=== PATIENT | female | born 1970 | race Caucasian/White ===

== ENCOUNTER 2021-11-17 09:58 | Day surgery (SDC) | payer BC ==
[~2021-11-17 09:58] MED LIST: Lactated Ringers 1,000 ML IV SCH; Midazolam 1 MG/ML 2 ML SDV ONE; Propofol 200 MG/20 ML SDV ONE; Sodium Chloride 0.9% 10 ML Syringe FLUSH PRN
[2021-11-17 14:47] VITALS: BP 129/90; PULSE 76
== END 2021-11-17 13:20 | disposition home or self-care (01) ==
LOC: LL.SDS 09:58
PROVIDERS: ATTEND Surgery
DX: Z12.11 Encounter for screening for malignant neoplasm of colon (principal); K64.9 Unspecified hemorrhoids; M17.11 Unilateral primary osteoarthritis, right knee; Z79.899 Other long term (current) drug therapy; Z80.0 Family history of malignant neoplasm of digestive organs; Z88.8 Allergy status to other drugs, medicaments and biological substances; Z88.2 Allergy status to sulfonamides; Z98.890 Other specified postprocedural states; Z87.891 Personal history of nicotine dependence
CPT/HCPCS: J2250; J2704; J7120